=== PATIENT | female | born 1955 | race Caucasian/White ===

== ENCOUNTER → 2016-06-19 | Outpatient (CLI) | payer OTHER ==
[~2016-06-19] MED LIST: CLAR10CA3 PO; LOSA100T37 PO; NS 1,000 ML IV SCH; PROPOFOL 200 MG/20 ML VIAL As Ordered ONE
--- NOTE | 2016-06-19 13:44 | ROOR ---
Patient Name: Dior Haney Procedure Date: 06/19/2016 1:27 PM Date of : 1955 Age: 60 Room: [facility] Gender: Female Note Status: Finalized Procedure: Colonoscopy Indications: High risk colon cancer surveillance: Personal history of colonic polyps, Last colonoscopy: July 2012 Providers: Ken KHOURY MD Referring MD: 1. No Referring Physician 1. No Referring Physician, Admin. Requesting Provider: Medicines: Monitored Anesthesia Care Complications: No immediate complications. Procedure: Pre-Anesthesia Assessment: - The heart rate, respiratory rate, oxygen saturations, blood pressure, adequacy of pulmonary ventilation, and response to care were monitored throughout the procedure. The Colonoscope was introduced through the anus and advanced to the cecum, identified by appendiceal orifice and ileocecal valve. The colonoscopy was performed without difficulty. The patient tolerated the procedure well. The quality of the bowel preparation was good. Findings: The perianal and digital rectal examinations were normal. (Exam: Complete, Prep: Good or Excellent.) Small Internal Hemorrhoids. Multiple small-mouthed diverticula were found in the sigmoid colon. The entire examined colon appeared normal on direct and retroflexion views. Impression: - (Exam: Complete, Prep: Good or Excellent.) - Small Internal Hemorrhoids. - Diverticulosis in the sigmoid colon. - The entire colon is normal on direct and retroflexion views. - No specimens collected. Recommendation: - Repeat colonoscopy in 5 years for surveillance. Ken Khoury MD Ken KHOURY MD 06/19/2016 1:43:38 PM This report has been signed electronically. Number of Addenda: 0 Note Initiated On: 06/19/2016 1:27 PM Estimated Blood Loss: Estimated blood loss: none.
[2016-06-19 14:06] VITALS: BP 190/84
== END ==
LOC: M OPP 11:32
PROVIDERS: ATTEND Internal Medicine Gastroenterology
DX: Z12.11 Encounter for screening for malignant neoplasm of colon (principal); K57.30 Diverticulosis of large intestine without perforation or abscess without bleeding; K64.0 First degree hemorrhoids; Z86.010 Personal history of colon polyps; I10 Essential (primary) hypertension; F17.200 Nicotine dependence, unspecified, uncomplicated; Z79.899 Other long term (current) drug therapy

== ENCOUNTER → 2017-01-06 | Outpatient (CLI) | payer OTHER ==
[~2017-01-06] MED LIST changes: -LOSA100T37 PO; +LOSA100T5 PO; -NS 1,000 ML IV SCH; -PROPOFOL 200 MG/20 ML VIAL As Ordered ONE
--- NOTE | 2017-01-06 12:07 | REPMRS ---
Patient History The patient states she had a clinical breast exam in 2016.Patient is postmenopausal. Family history of prostate cancer in father at age 50 or over, breast cancer in paternal aunt at age 45, and prostate cancer in brother under age 50. Took hormonal contraceptives for 10 years. Digital Mammo Screening Bilat: January 06, 2017 - Exam #: [id number] Bilateral CC and MLO view(s) were taken. Technologist: Janki Shepherd, Technologist Prior study comparison: December 06, 2015, digital bilateral screening mammo, performed at [facility]. September 15, 2014, bilateral digital mammo screening bilat performed at [facility]. June 08, 2013, bilateral bilat screen digital mammo, performed at [facility] ([facility]). FINDINGS: The breast tissue is heterogeneously dense. This may lower the sensitivity of mammography. There is a moderate amount of heterogeneously dense fibroglandular tissue which is fairly symmetric. There is no interval development of dominant mass, architectural distortion, or clustered microcalcification typical of malignancy. There has been no change in the appearance of the mammogram from the prior studies. ASSESSMENT: BI-RADS/ACR category 1 mammogram. Negative. Recommendation Routine screening mammogram of both breasts in 1 year (for women over age 40). This mammogram was interpreted with the aid of an FDA-approved computer-aided dectection system. Electronically Signed By: Sedrick Narvaez MD 01/06/17 [id number]
== END ==
LOC: M RAD 10:43
PROVIDERS: ATTEND Obstetrics & Gynecology
DX: Z12.31 Encounter for screening mammogram for malignant neoplasm of breast (principal); Z78.0 Asymptomatic menopausal state; Z80.3 Family history of malignant neoplasm of breast

== ENCOUNTER → 2018-02-11 | Outpatient (CLI) | payer OTHER | LOC: M RAD 13:32 | DX: Z12.31 Encounter for screening mammogram for malignant neoplasm of breast (principal); N60.31 Fibrosclerosis of right breast; N60.32 Fibrosclerosis of left breast ==

== ENCOUNTER → 2019-03-02 | Outpatient (CLI) | payer OTHER ==
--- NOTE | 2019-03-02 15:07 | REPMRS ---
Patient History The patient states she had a clinical breast exam in 2018. Patient is postmenopausal and has history of diffuse large B cell lymphoma at age 62. Family history of breast cancer at age 45 in paternal aunt, prostate cancer under age 50 in brother, prostate cancer at age 50 or over in father. Took hormonal contraceptives for 10 years. 3D TOMOSYNTHESIS WAS PERFORMED. The [facility] lifetime risk for breast cancer is10.1 %. Patient now has a infusaport on the right Digital Mammo Screening Bilat: March 02, 2019 - Exam #: [id number] Bilateral CC and MLO view(s) were taken. Technologist: Cynthia Love, Technologist Prior study comparison: February 11, 2018, bilateral digital mammo screening bilat performed at [facility]. January 06, 2017, bilateral digital mammo screening bilat performed at [facility]. FINDINGS: The breast tissue is heterogeneously dense. This may lower the sensitivity of mammography. There has been no change in the appearance of the mammogram from the prior studies. There is a moderate amount of residual fibroglandular tissue which is fairly symmetric. There is no interval development of dominant mass, areas of architectural distortion, or clustered microcalcification typical of malignancy. Assessment: BI-RADS/ACR category 1 mammogram. Negative Mammogram. Recommendation Routine screening mammogram in 1 year (for women over age 40). This mammogram was interpreted with the aid of an FDA-approved computer-aided dectection system. Electronically Signed By: Devante Suresh MD 03/02/19 0150
[2019-03-05 00:13] LABS: HSV TYPE I IgG SPECIFIC 6.08 index (0.00-0.90); HSV TYPE II IgG SPECIFIC <0.91 index (0.00-0.90)
== END ==
LOC: M RAD 14:10
PROVIDERS: ATTEND Obstetrics & Gynecology
DX: Z12.31 Encounter for screening mammogram for malignant neoplasm of breast (principal); A60.04 Herpesviral vulvovaginitis; Z80.3 Family history of malignant neoplasm of breast; Z85.79 Personal history of other malignant neoplasms of lymphoid, hematopoietic and related tissues; Z80.42 Family history of malignant neoplasm of prostate

== ENCOUNTER → 2020-03-26 | Outpatient (CLI) | payer BC ==
--- NOTE | 2020-03-26 11:51 | REP ---
INDICATION: N63.11 RT BREAST LUMP. Lump near right-sided port. Family history of breast cancer in paternal aunt at age 45. COMPARISON: Mammogram 03/02/2019 as well as other prior exams. TECHNIQUE: Bilateral mammogram performed in the MLO and CC projections with tomosynthesis. Additional spot-compression views performed of the right breast. Focused right breast ultrasound at the site of the reported palpable lump near the right-sided MediPort. FINDINGS: Moderate heterogeneous fibroglandular tissue is seen bilaterally. There is no evidence of a mass or architectural distortion bilaterally. No clustered microcalcifications are seen bilaterally. The right-sided MediPort is visualized projecting in the region of the right axilla on the MLO view. I do not see an adjacent mammographic abnormality. Small benign-appearing axillary lymph nodes are seen bilaterally. Real-time sonographic evaluation of the right breast performed in the region of the reported palpable lump near the mid port. No cystic or solid nodule is seen in this region. The Volpara volumetric breast density pattern is B. IMPRESSION: BIRADS/ACR category 2 benign. Right MediPort again noted. No mass or clustered microcalcifications. There is no mammographic or sonographic evidence of a mass at the site of the reported palpable lump near the right MediPort. A negative mammogram and ultrasound should not deter biopsy if there is a clinically suspicious palpable mass present. Clinical correlation and follow-up recommended. This patient's Tyrer-Cuzick lifetime breast cancer risk assessment score is 9.7%. This mammogram was interpreted with the aid of an FDA-approved computer-aided detection system. The patient states she had a clinical breast exam in February 2020. The patient letter being requested is M2. RECOMMENDATION: Repeat screening mammography recommended 1 year (for women over 40). <Electronically signed by Devante Suresh > 03/26/20 [id number]
== END ==
LOC: M WHC 09:32
PROVIDERS: ATTEND Obstetrics & Gynecology
DX: N63.11 Unspecified lump in the right breast, upper outer quadrant (principal)

== ENCOUNTER → 2021-04-12 | Outpatient (CLI) | payer BC ==
[~2021-04-12] MED LIST changes: +AMLO1TAB24 PO; +ATOR1TAB21 PO; +GABA600T4 PO; +HYDR-3490 PO; +LOSA100T50 PO; +NAPR220C14 PO; +OMEP-221 PO; +VALA1TAB5 PO
--- NOTE | 2021-04-12 16:06 | REPMRS ---
Patient History The patient states she had a clinical breast exam on 2020. Patient is postmenopausal, has history of other cancer at age 62, and had previous chemotherapy. Family history of breast cancer at age 45 in paternal aunt, prostate cancer under age 50 in brother, prostate cancer at age 50 or over in father. Took hormonal contraceptives for 10 years. Patient states no breast complaints today. Patient has signed MRS History Sheet. Digital Woman Screen Mammo: April 12, 2021 - Exam #: [id number] Bilateral CC and MLO view(s) were taken. Technologist: Lena Barr, Sewing Techniques Demonstrator Prior study comparison: March 26, 2020, diagnostic bilateral mammo performed at [facility] [place]. March 02, 2019, bilateral digital mammo screening bilat, performed at [facility]. FINDINGS: There are scattered fibroglandular densities. Screening. Digital screening (2D) mammography was performed bilaterally in the CC and MLO projections. Additionally, breast tomosynthesis (3D mammography) was performed bilaterally in the CC and MLO projections. Todays exam was compared to the prior exam/exams. By history, the patient has no complaints of a palpable breast abnormality or other significant breast complaints. The Volpara volumetric breast density category is B, there are scattered areas of fibroglandular densities. The breasts are unchanged in size and shape. There are no danilo-soft tissue densities or spiculated masses. There is no internal architectural distortion. There are no suspicious danilo-calcific clusters. Skin thickening or nipple retraction is not present. IMPRESSION: BI-RADS Category 2- Benign Findings. There is no evidence of malignant alteration of the breasts. Followup examination recommended in one year. The lifetime Tyrer-Cuzick score is 9.3% This mammogram was read with the assistance of Xiaoi Robert,an FDA approved computer aided detection system for mammography. Negative x-ray reports should not delay surgical consultation if a dominant or clinically suspicious mass is present. Not all breast cancers can be identified by mammography. Therefore, we recommend that you continue to perform regular breast self-examination and physical examination and then promptly contact your physician of any concerns or changes. Adenosis and dense breasts may obscure an underlying neoplasm. No significant changes when compared with prior studies. Assessment: BI-RADS/ACR category 2 mammogram. Benign Findings. Recommendation Routine screening mammogram of both breasts in 1 year. Electronically Signed By: Aurelio Coon MD 04/12/21 0707
== END ==
LOC: M WHC 13:40
PROVIDERS: ATTEND Obstetrics & Gynecology
DX: Z12.31 Encounter for screening mammogram for malignant neoplasm of breast (principal); Z78.0 Asymptomatic menopausal state; Z85.9 Personal history of malignant neoplasm, unspecified; Z80.3 Family history of malignant neoplasm of breast; Z92.0 Personal history of contraception

== ENCOUNTER → 2021-04-30 | Outpatient (CLI) | payer BC ==
--- NOTE | 2021-04-30 15:13 | DEXAMM ---
INDICATION: SCREEN OSTEO. COMPARISON: 03/10/2019 as well as other prior exams. TECHNIQUE: Bone density was measured using dual-energy x-ray absorptiometry (DEXA). FINDINGS: AP SPINE L1-L4 BMD 1.407 g/cm2 Young Adult T-Score 1.7 Age Matched Z-Score 3.3. LT FEMUR, TOTAL BMD 1.126 g/cm2 Young Adult T-Score 0.9 Age Matched Z-Score 2.1. LT NECK BMD 1.023 g/cm2 Young Adult T-Score -0.1 Age Matched Z-Score 1.3. RT FEMUR, TOTAL BMD 1.138 g/cm2 Young Adult T-Score 1.0 Age Matched Z-Score 2.2. RT NECK BMD 1.088 g/cm2 Young Adult T-Score 0.4 Age Matched Z-Score 1.8. IMPRESSION: There is normal bone density of the spine. There is normal bone density of the left hip. There is normal bone density of the right hip. The density of the spine has decreased 11.5% since the initial exam on 09/11/2006. The density of the spine increased 6.5% since most recent exam on 03/10/2019. The density of the left hip has decreased 5.9% since initial exam on 09/11/2006. The density of the left hip has decreased 0.5% since most recent exam on 03/10/2019. The density of the right hip has decreased 12.1% since the initial exam on 09/11/2006. The density of the right hip has decreased 1.6% since the most recent exam on 03/10/2019. FOLLOW-UP: Recommendation for the next bone density exam: 5 years. <Electronically signed by Devante Suresh > 04/30/21 [id number]
== END ==
LOC: M WHC 13:33
PROVIDERS: ATTEND Advanced Practice Midwife
DX: Z13.820 Encounter for screening for osteoporosis (principal)

== ENCOUNTER → 2022-04-29 | Outpatient (CLI) | payer MEDICARE, BC ==
[~2022-04-29] MED LIST changes: +ALEV1TAB PO; +LOSA100T45 PO; -LOSA100T50 PO; -OMEP-221 PO; +OMEP40CA5 PO
== END ==
LOC: M WHC 10:31
DX: N64.4 Mastodynia (principal); Z85.72 Personal history of non-Hodgkin lymphomas; Z92.21 Personal history of antineoplastic chemotherapy
CPT/HCPCS: 77066; G0279

== ENCOUNTER → 2022-08-01 | Outpatient (REF) | payer MEDICARE, BC ==
[2022-08-01 17:12] LABS: FERRITIN 46.9 NG/ML (7.3-270.7)
[2022-08-01 17:15] LABS: PERCENT SATURATION 25.9 % (13.2-45.0)
== END ==
LOC: M LAB REF 16:20
PROVIDERS: ATTEND Internal Medicine
DX: D50.9 Iron deficiency anemia, unspecified (principal)

== ENCOUNTER → 2022-08-15 | Outpatient (REF) | payer MEDICARE, BC | LOC: M LAB REF 12:17 | PROVIDERS: ATTEND Internal Medicine | DX: N39.0 Urinary tract infection, site not specified (principal) ==

== ENCOUNTER → 2022-09-26 | Outpatient (REF) | payer MEDICARE, BC ==
[~2022-09-26] MED LIST changes: -LOSA100T45 PO; +LOSA100T46 PO
== END ==
LOC: M LAB REF 12:05
PROVIDERS: ATTEND Nurse Practitioner Family
DX: R10.9 Unspecified abdominal pain (principal)

== ENCOUNTER → 2022-10-27 | Outpatient (CLI) | payer MEDICARE, BC | LOC: M WHC 08:10 | PROVIDERS: ATTEND Nurse Practitioner Family | DX: R10.11 Right upper quadrant pain (principal); K76.89 Other specified diseases of liver ==

== ENCOUNTER → 2023-06-09 | Outpatient (CLI) | payer MEDICARE, BC | LOC: M WHC 10:24 | PROVIDERS: ATTEND Internal Medicine | DX: Z12.31 Encounter for screening mammogram for malignant neoplasm of breast (principal) ==

== ENCOUNTER → 2023-06-09 | Outpatient (CLI) | payer MEDICARE, BC | LOC: M WHC 10:17 | PROVIDERS: ATTEND Internal Medicine | DX: Z13.820 Encounter for screening for osteoporosis (principal); M81.0 Age-related osteoporosis without current pathological fracture; Z12.31 Encounter for screening mammogram for malignant neoplasm of breast ==

== ENCOUNTER → 2023-10-09 | Outpatient (CLI) | payer MEDICARE ==
[2023-10-09 13:07] LABS: BASO # 0.1 10^3/uL (0.0-0.2); EOS # 0.1 10^3/uL (0.0-0.5); EOS % 2.1 % (0.0-3.0); HEMATOCRIT 40.2 % (36.0-47.0); HEMOGLOBIN 13.2 g/dl (12.0-15.5); MEAN CORPUSCULAR HEMOGLOBIN 30.2 pg (27.0-33.0); MEAN CORPUSCULAR HGB CONC 32.8 g/dl (32.0-36.5); MONO # 0.7 10^3/uL (0.0-0.8); MONO % 10.6 % (2.0-8.0); NEUTROPHILS # 3.8 10^3/uL (1.5-8.5); PLATELET COUNT, AUTOMATED 262 10^3/uL (150-450); RED BLOOD COUNT 4.37 10^6/uL (4.00-5.40); WHITE BLOOD COUNT 6.8 10^3/uL (4.0-10.0)
[2023-10-09 13:43] LABS: CPK CREATINE PHOSPHOKINASE 214 U/L (34-145)
[2023-10-09 13:44] LABS: ALKALINE PHOSPHATASE 67 U/L (46-116); ALT/SGPT 39 U/L (7.0-40); AST/SGOT 23 U/L (<34); BILIRUBIN,TOTAL 0.5 MG/DL (0.3-1.2); BLOOD UREA NITROGEN 24 MG/DL (9-23); CALCIUM LEVEL 9.4 MG/DL (8.3-10.6); CARBON DIOXIDE LEVEL 29 MMOL/L (20-31); CHLORIDE LEVEL 100 MMOL/L (98-107); CHOLESTEROL LEVEL 147 MG/DL (<200); CHOLESTEROL RISK RATIO 2.13 (<5); GLOMERULAR FILTRATION RATE > 60.0 (>45); GLUCOSE, FASTING 74 MG/DL (74-106); LDL CHOLESTEROL 61.4 MG/DL (<100); POTASSIUM SERUM 4.3 MMOL/L (3.5-5.1); SODIUM LEVEL 136 MMOL/L (136-145); TRIGLYCERIDES LEVEL 83 MG/DL (<150)
== END ==
LOC: M WUC 10:55
PROVIDERS: ATTEND Physician Assistant
DX: E78.2 Mixed hyperlipidemia (principal)

== ENCOUNTER → 2023-11-04 | Outpatient (REF) | payer MEDICARE ==
[2023-11-04 13:27] LABS: MB/CK RELATIVE INDEX 0.66 (< OR =4)
== END ==
LOC: M LAB REF 11:30
PROVIDERS: ATTEND Internal Medicine
DX: E78.5 Hyperlipidemia, unspecified (principal); R07.9 Chest pain, unspecified

== ENCOUNTER → 2024-02-04 | Outpatient (REF) | payer MEDICARE, BC ==
[~2024-02-04] MED LIST changes: +GABA-1490 PO; -GABA600T4 PO
[2024-02-04 15:40] LABS: PERCENT SATURATION 25.9 % (13.2-45.0)
== END ==
LOC: M LAB REF 13:07
PROVIDERS: ATTEND Internal Medicine
DX: D64.9 Anemia, unspecified (principal)

== ENCOUNTER → 2024-02-22 | Outpatient (CLI) | payer MEDICARE, BC ==
[~2024-02-22] MED LIST changes: +GASTROGRAFIN SOLUTION 30ML As Ordered ONE; +ISOVUE-370 76% 100ML VIAL As Ordered ONE
== END ==
LOC: M RAD 07:31
PROVIDERS: ATTEND Internal Medicine
DX: R07.9 Chest pain, unspecified (principal); R10.13 Epigastric pain; Z85.72 Personal history of non-Hodgkin lymphomas; I25.10 Atherosclerotic heart disease of native coronary artery without angina pectoris; R91.8 Other nonspecific abnormal finding of lung field; K76.0 Fatty (change of) liver, not elsewhere classified; K57.30 Diverticulosis of large intestine without perforation or abscess without bleeding
CPT/HCPCS: 71260; 74178; Q9963; Q9967

== ENCOUNTER 2024-03-08 10:28 | Emergency (ER) | payer MEDICARE, BC ==
[~2024-03-08] VITALS: Ht 162.6 cm; Wt 81.6 kg
[~2024-03-08 10:28] MED LIST changes: -GASTROGRAFIN SOLUTION 30ML As Ordered ONE; -ISOVUE-370 76% 100ML VIAL As Ordered ONE
[2024-03-08 11:49] LABS: BASO # 0.1 10^3/uL (0.0-0.2); BASO % 0.5 % (0.0-1.0); EOS # 0.1 10^3/uL (0.0-0.5); EOS % 1.3 % (0.0-3.0); HEMATOCRIT 42.1 % (36.0-47.0); HEMOGLOBIN 13.9 g/dl (12.0-15.5); LYMPH # 1.4 10^3/uL (1.5-5.0); MEAN CORPUSCULAR HEMOGLOBIN 29.6 pg (27.0-33.0); MEAN CORPUSCULAR VOLUME 89.6 fl (80.0-96.0); MONO # 0.9 10^3/uL (0.0-0.8); NEUTROPHILS # 7.1 10^3/uL (1.5-8.5); NEUTROPHILS % 73.9 % (36.0-66.0); PLATELET COUNT, AUTOMATED 263 10^3/uL (150-450); WHITE BLOOD COUNT 9.6 10^3/uL (4.0-10.0)
[2024-03-08 12:10] LABS: ALBUMIN 3.8 G/DL (3.2-5.2); BILIRUBIN,DIRECT 0.2 MG/DL (<0.4); BILIRUBIN,TOTAL 0.4 MG/DL (0.3-1.2); CALCIUM LEVEL 9.8 MG/DL (8.3-10.6); CREATININE FOR GFR 1.05 MG/DL (0.55-1.30); GLOMERULAR FILTRATION RATE 55.7 (>45); TOTAL PROTEIN 7.2 G/DL (5.7-8.2)
[2024-03-08 12:13] LABS: THYROID STIMULATING HORMONE 2.833 uIU/ML (0.55-4.78)
[2024-03-08] MEDS: NS 500 ML IV ONE (13:47)
[2024-03-08] MEDS: METOCLOPRAMIDE INJ 10MG/2ML VIAL IV ONE (14:04)
[2024-03-08 14:45] VITALS: BP 138/72; TEMP 97.5; O2SAT 96
[2024-03-08] MEDS ORDERED: METO5TAB2 PO (14:53)
[2024-03-11] MEDS ORDERED: FURO20TA2 PO (12:00)
[2024-03-11] MEDS ORDERED: PEPC1TAB5 PO (12:00)
[2024-03-11] MEDS ORDERED: ACET-897 PO (12:00)
[2024-03-11] MEDS ORDERED: METO50TA7 PO (12:00)
[2024-03-11] MEDS ORDERED: CLOP75TA2 PO (12:00)
[2024-03-11] MEDS ORDERED: PANT40TA29 PO (12:00)
[2024-03-11] MEDS ORDERED: EZET10TA21 PO (12:00)
[2024-03-11] MEDS ORDERED: LORA-243 PO (12:00)
[2024-03-11] MEDS ORDERED: ASPI-226 PO (12:00)
[2024-03-11] MEDS ORDERED: ATOR40TA75 PO (12:00)
== END 2024-03-08 15:06 | disposition home or self-care (01) ==
LOC: M ED 10:28
DX: K31.84 Gastroparesis (principal); K21.9 Gastro-esophageal reflux disease without esophagitis; I10 Essential (primary) hypertension; K44.9 Diaphragmatic hernia without obstruction or gangrene; Z85.79 Personal history of other malignant neoplasms of lymphoid, hematopoietic and related tissues; Z79.02 Long term (current) use of antithrombotics/antiplatelets; Z79.811 Long term (current) use of aromatase inhibitors; Z79.899 Other long term (current) drug therapy; Z86.79 Personal history of other diseases of the circulatory system
CPT/HCPCS: 80048; 80076; 84443; 85025; 96361; 96374; 99284; J2765

== ENCOUNTER 2024-03-15 11:47 | Day surgery (SDC) | payer MEDICARE, BC ==
[~2024-03-15] VITALS: Ht 162.6 cm; Wt 78.6 kg
[~2024-03-15 11:47] MED LIST changes: +ACET-897 PO; +ASPI-226 PO; +ATOR40TA75 PO; +CLOP75TA2 PO; +EZET10TA21 PO; +FURO20TA2 PO; +LORA-243 PO; +METO50TA7 PO; +METO5TAB2 PO; +PANT40TA29 PO; +PEPC1TAB5 PO
[2024-03-15] MEDS: NS 250 ML IV ONE (12:18)
[2024-03-15] MEDS ORDERED: fentaNYL 100 MCG/2 ML INJECTION As Ordered ONE (13:14)
[2024-03-15] MEDS ORDERED: ONDANSETRON 4MG 2ML VIAL As Ordered ONE (13:26)
[2024-03-15 14:01] VITALS: TEMP 97.7
[2024-03-15] MEDS ORDERED: propofoL 200 MG/20 ML VIAL As Ordered ONE (14:04)
[2024-03-15] MEDS ORDERED: LIDOCAINE 2% 100MG/5ML SDV (FOR ANES.) As Ordered ONE (14:04)
[2024-03-15] MEDS: MAALOX 30 ML SUSP *UDC PO ONE (14:11)
[2024-03-15 14:30] VITALS: BP 114/61; O2SAT 96
== END 2024-03-15 14:56 | disposition home or self-care (01) ==
LOC: M OPP 11:47
PROVIDERS: ATTEND Internal Medicine Gastroenterology
DX: K29.50 Unspecified chronic gastritis without bleeding (principal); R10.13 Epigastric pain; D13.2 Benign neoplasm of duodenum; R07.89 Other chest pain; I10 Essential (primary) hypertension; E78.00 Pure hypercholesterolemia, unspecified; K21.9 Gastro-esophageal reflux disease without esophagitis; Z92.21 Personal history of antineoplastic chemotherapy; K76.89 Other specified diseases of liver; Z79.899 Other long term (current) drug therapy; Z79.82 Long term (current) use of aspirin; Z95.1 Presence of aortocoronary bypass graft; Z85.72 Personal history of non-Hodgkin lymphomas; I25.10 Atherosclerotic heart disease of native coronary artery without angina pectoris; E66.9 Obesity, unspecified; Z68.31 Body mass index [BMI] 31.0-31.9, adult; Z87.891 Personal history of nicotine dependence
CPT/HCPCS: 43239; 88305; J2405; J3010